=== PATIENT | female | born 1980 | race Caucasian/White ===

== ENCOUNTER 2021-01-10 11:10 | Emergency (ER) | payer MEDICAID, OTHER ==
[~2021-01-10] VITALS: Ht 152.4 cm; Wt 99.1 kg
[2021-01-10] MEDS ORDERED: PHENAZOPYRIDINE 100 MG TAB PO ONE (13:25)
[2021-01-10] MEDS ORDERED: ACETAMINOPHEN 500 MG TAB PO ONE (13:25)
[2021-01-10 13:51] LABS: BASO # 0.1 10^3/uL (0.0-0.2); BASO % 0.4 % (0.0-1.0); EOS # 0.1 10^3/uL (0.0-0.5); EOS % 0.8 % (0.0-3.0); HEMATOCRIT 40.6 % (36.0-47.0); HEMOGLOBIN 13.7 g/dl (12.0-15.5); LYMPH # 3.1 10^3/uL (1.5-5.0); LYMPH % 25.8 % (24.0-44.0); MEAN CORPUSCULAR HEMOGLOBIN 28.8 pg (27.0-33.0); MEAN CORPUSCULAR HGB CONC 33.7 g/dl (32.0-36.5); MEAN CORPUSCULAR VOLUME 85.5 fl (80.0-96.0); MONO # 0.5 10^3/uL (0.0-0.8); MONO % 3.8 % (2.0-8.0); NEUTROPHILS # 8.2 10^3/uL (1.5-8.5); NEUTROPHILS % 68.8 % (36.0-66.0); PLATELET COUNT, AUTOMATED 420 10^3/uL (150-450); RED BLOOD COUNT 4.75 10^6/uL (4.00-5.40); WHITE BLOOD COUNT 11.9 10^3/uL (4.0-10.0)
--- NOTE | 2021-01-10 14:13 | REP ---
INDICATION: uti, R CVAT, r/o stone vs pyelo. COMPARISON: None. TECHNIQUE: Real-time sonographic evaluation of the kidneys with Doppler FINDINGS: Multiple ultrasonographic images of the right kidney show the right kidney to measure 11 x 5.8 x 4.7 cm. The renal cortical echotexture is unremarkable. There is a round hypoechoic structure seen arising from the lower pole of the right kidney which measures 2.9 x 2.5 x 2.3 cm and exhibiting slight posterior wall enhancement without definite increased through transmission.. There is good corticomedullary differentiation. There is no hydronephrosis. There are no perinephric fluid collections. Multiple ultrasonographic images of the left kidney show the left kidney to measure 10.1 x 6 x 5.3 cm. The renal cortical echotexture is unremarkable. There are no masses. There is good corticomedullary differentiation. There is no hydronephrosis. There are no perinephric fluid collections. IMPRESSION: Probable right renal cyst as described above, however, since are no priors comparison I would recommend pre and postcontrast enhanced renal CT for full evaluation. <Electronically signed by Parker Su > 01/10/21 [id number]
--- NOTE | 2021-01-10 14:25 | REP ---
INDICATION: UTI, low back pain, R CVAT. COMPARISON: None. TECHNIQUE: Two AP views abdomen and pelvis. FINDINGS: There is no evidence of bowel dilatation, with no evidence of bowel obstruction. A 2 mm calcification is seen in the left pelvis. The visualized osseous structures are unremarkable. IMPRESSION: There is a 2 mm calcific density in the left pelvis. Distal ureteral calculus cannot be completely excluded. <Electronically signed by Fidencio Barahona > 01/10/21 0900
[2021-01-10] MEDS ORDERED: PHEN-372 PO (14:58)
[2021-01-10] MEDS ORDERED: CIPR500T39 PO (14:58)
[2021-01-10 15:22] VITALS: BP 134/81
--- NOTE | 2021-01-11 16:38 | ED PDOC ---
Post-Departure Follow-Up dr dela cruz faxed formal report of renal us for fu Alyx Archer MD Jan 11, 2021 16:38
== END 2021-01-10 15:24 | disposition home or self-care (01) ==
LOC: M ED 11:10
DX: N28.1 Cyst of kidney, acquired (principal); N39.0 Urinary tract infection, site not specified; Z91.030 Bee allergy status; Z91.040 Latex allergy status; F17.210 Nicotine dependence, cigarettes, uncomplicated

== ENCOUNTER → 2021-01-19 | Outpatient (REF) | payer MEDICAID ==
[~2021-01-19] MED LIST: CIPR500T39 PO; PHEN-372 PO
== END ==
LOC: M SFHCWAGY 13:23
PROVIDERS: ATTEND Advanced Practice Midwife
DX: Z12.4 Encounter for screening for malignant neoplasm of cervix (principal)

== ENCOUNTER → 2021-01-23 | Outpatient (CLI) | payer MEDICAID ==
[2021-01-23 15:34] LABS: APPEARANCE, URINE CLEAR (CLEAR); BACTERIA, URINE AUTO NEGATIVE (NEGATIVE); BILIRUBIN, URINE AUTO NEGATIVE (NEGATIVE); BLOOD, URINE BLOOD NEGATIVE (NEGATIVE); COLOR, URINE YELLOW (YELLOW); GLUCOSE, URINE (UA) AUTO NEGATIVE (NEGATIVE); KETONE, URINE AUTO NEGATIVE (NEGATIVE); LEUKOCYTE ESTERASE, URINE AUTO NEGATIVE (NEGATIVE); NITRITE, URINE AUTO NEGATIVE (NEGATIVE); PROTEIN, URINE AUTO NEGATIVE (NEGATIVE); RBC, URINE AUTO 1 /HPF (0-3); SPECIFIC GRAVITY URINE AUTO 1.018 (1.002-1.035); SQUAMOUS EPITHELIAL CELL UR AU 2 /HPF (0-6); UROBILINOGEN, URINE AUTO 0.2 mg/dL (0.0-2.0); WBC, URINE AUTO 3 /HPF (0-3)
== END ==
LOC: M LAB 15:02
PROVIDERS: ATTEND Nurse Practitioner Women's Health
DX: R31.0 Gross hematuria (principal)

== ENCOUNTER → 2021-01-25 | Outpatient (CLI) | payer MEDICAID, OTHER ==
[~2021-01-25] MED LIST changes: +ISOVUE-370 76% 100ML VIAL As Ordered ONE
--- NOTE | 2021-01-26 15:33 | REP ---
INDICATION: HEMATURIA. COMPARISON: None. TECHNIQUE: Imaging protocol: Computed tomography of the abdomen and pelvis with oral and without and with IV contrast. Contiguous 3 mm thick axial projection images were obtained through the abdomen and pelvis. 2D sagittal and coronal reconstructions were performed. Radiation optimization: All CT scans at this facility use at least one of these dose optimization techniques: automated exposure control; mA and/or kV adjustment per patient size (includes targeted exams where dose is matched to clinical indication); or iterative reconstruction. Contrast material: ISOVUE 370; Contrast volume: 100 ml; Contrast route: INTRAVENOUS (IV). FINDINGS: Heart and lung bases: The lung bases are clear. There are no pleural effusions. The heart size is normal. There is no pericardial effusion. Liver: There is moderate fatty liver infiltration. Gallbladder: Partially evacuated. Spleen: Normal. Pancreas: Normal. Adrenal glands: Normal. Kidneys/bladder: There is a 2 mm stone in an upper pole calyx of the left kidney. There is a 2 mm stone in a lower pole calyx of the right kidney. There is no ureterolithiasis or hydronephrosis. There is a 2.6 cm in diameter exophytic cyst from the interpolar cortex of the right kidney. There is a 2 mm cyst in the lower pole calyx of the left kidney. The urinary bladder is unremarkable. Pelvic structures: The anteverted uterus is unremarkable. The right ovary is enlarged, measuring 7.9 by 5.3 by 4.9 cm, and contains multiple, unilocular, cysts. The left lobe ovary is enlarged, measuring 7.7 x 6.5 x 3.9 cm, and contains multiple unilocular cysts. There is no free fluid in the pelvis. There is no pelvic or inguinal lymphadenopathy. GI tract: There is scattered colonic diverticula without evidence of acute inflammation. There is a normal appendix demonstrated. Abdominal wall and mesentery: There are no abdominal wall defects. There is no mesenteric or retroperitoneal lymphadenopathy. Abdominal aorta and vascular structures: The abdominal aorta, inferior vena cava, and portal venous system are normal. Bony structures: The lumbosacral spine is unremarkable. 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 The hips are unremarkable. IMPRESSION: 1. Bilateral nephrolithiasis without obstruction. 2. Fatty liver infiltration. 3. The ovaries are enlarged and contain multiple unilocular cysts. 4. Colonic diverticulosis without diverticulitis. 5. Other findings as noted. <Electronically signed by Pankaj Conn > 01/26/21 [id number]
== END ==
LOC: M RAD 15:53
PROVIDERS: ATTEND Nurse Practitioner Women's Health
DX: N20.1 Calculus of ureter (principal); R31.0 Gross hematuria; K76.0 Fatty (change of) liver, not elsewhere classified; K57.30 Diverticulosis of large intestine without perforation or abscess without bleeding
CPT/HCPCS: 74178; Q9967

== ENCOUNTER → 2021-02-02 | Outpatient (CLI) | payer MEDICAID ==
[~2021-02-02] MED LIST changes: -ISOVUE-370 76% 100ML VIAL As Ordered ONE
== END ==
LOC: M WHC 09:25
PROVIDERS: ATTEND Advanced Practice Midwife
DX: N92.0 Excessive and frequent menstruation with regular cycle (principal); Z53.9 Procedure and treatment not carried out, unspecified reason

== ENCOUNTER → 2021-02-03 | Outpatient (CLI) | payer MEDICAID ==
--- NOTE | 2021-02-03 19:17 | REP ---
INDICATION: MENORRAGHIA. COMPARISON: CT 01/25/2021 TECHNIQUE: Transabdominal and endovaginal probe ultrasound utilized. FINDINGS: Bladder is full at 13.7 x 6.2 x 9.2 cm. Uterus is anteverted measuring 8.9 x 3.6 x 4.1 cm. The central endometrial stripe has a thickness of 11.4 mm on the Ev probe that is homogeneous. The left of midline is a 3.1 x 3 x 3.1 cm fibroid. This is anterior and in the body of the uterus. There is nabothian cyst in the cervix. Right ovary is 5.6 x 3 x 4 cm the largest cyst 4.8 x 4.3 x 3.9 cm in that ovary. Left ovary is 3.5 x 2.3 x 2.2 cm in is a 2.5 x 3 x 1.9 cm cyst. Doppler tracing the left shows resistive index 0.78 we were unable to obtain adequate Doppler tracing of the right ovary. To the right of midline is a tubular structure 5.6 x 2.2 cm and a somewhat smaller tubular fluid-filled structure on the left 4.9 x 4.3 cm. IMPRESSION: 1. Anteverted uterus which has an anterior left uterine body fibroid which is subserosal and measures 3.1 x 3.1 x 3 cm. Endometrial stripe thickness for 11.4 mm with no fluid in the endometrial cavity. Nabothian cysts seen. 2. Right ovary has a 4.8 x 4.3 x 3.9 cm cyst and the left has a 2.5 x 3 x 1.9 cm cyst. Doppler tracing on the left shows resistive index 0.78 and the Doppler tracing could not be obtained on the right. 3. Bilateral fluid-filled tubular structures in the adnexal regions on the right 5.6 x 2.2 cm on the left 4.9 x 4.3 cm. Salpingitis or other tubular abnormality suspected. No pelvic free fluid. <Electronically signed by Jose Manuel Levine > 02/03/211912
== END ==
LOC: M WHC 13:59
PROVIDERS: ATTEND Advanced Practice Midwife
DX: N92.0 Excessive and frequent menstruation with regular cycle (principal); N83.201 Unspecified ovarian cyst, right side; N83.202 Unspecified ovarian cyst, left side; R93.89 Abnormal findings on diagnostic imaging of other specified body structures; D25.2 Subserosal leiomyoma of uterus

== ENCOUNTER → 2021-03-01 | Outpatient (REF) | payer MEDICAID, OTHER | LOC: M SFHCWAGY 15:06 | PROVIDERS: ATTEND Obstetrics & Gynecology | DX: N93.9 Abnormal uterine and vaginal bleeding, unspecified (principal); N85.01 Benign endometrial hyperplasia ==

== ENCOUNTER → 2021-04-12 | Outpatient (CLI) | payer OTHER | LOC: M RAD 09:59 | PROVIDERS: ATTEND Nurse Practitioner Family | DX: R06.00 Dyspnea, unspecified (principal) ==

== ENCOUNTER → 2021-04-19 | Outpatient (CLI) | payer OTHER | LOC: M CARPUL 07:46 | PROVIDERS: ATTEND Nurse Practitioner Family | DX: R06.00 Dyspnea, unspecified (principal) ==

== ENCOUNTER 2021-10-05 12:21 | Emergency (ER) | payer OTHER ==
[~2021-10-05] VITALS: Ht 152.4 cm; Wt 101.3 kg
[2021-10-05] MEDS ORDERED: METF-838 (13:32)
[2021-10-05] MEDS ORDERED: NORE0.353 (13:32)
[2021-10-05] MEDS ORDERED: MECL-86 (13:32)
[2021-10-05] MEDS ORDERED: EPIN0.3I11 (13:32)
[2021-10-05] MEDS ORDERED: AMIT25TA17 (13:32)
[2021-10-05] MEDS ORDERED: LIDOCAINE 4% CREAM 5GM (LMX4) TOP ONE (14:55)
[2021-10-05] MEDS ORDERED: KETOROLAC 60MG 2ML VIAL IM ONE (14:55)
[2021-10-05] MEDS ORDERED: LIDOCAINE 5% (LIDODERM) PATCH TD ONE (15:00)
[2021-10-05] MEDS ORDERED: MECLIZINE 25 MG TABLET PO ONE (15:00)
[2021-10-05 16:33] VITALS: BP 132/82
[2021-10-05] MEDS ORDERED: **NOTE PATIENT COMMENT** MISC XX SCH (21:00)
== END 2021-10-05 16:34 | disposition home or self-care (01) ==
LOC: M ED 12:21
DX: Z04.1 Encounter for examination and observation following transport accident (principal); M25.571 Pain in right ankle and joints of right foot; M25.572 Pain in left ankle and joints of left foot; M25.561 Pain in right knee; M25.562 Pain in left knee; M54.9 Dorsalgia, unspecified; J45.909 Unspecified asthma, uncomplicated; Z91.030 Bee allergy status; Z91.040 Latex allergy status; Z79.899 Other long term (current) drug therapy; Z79.84 Long term (current) use of oral hypoglycemic drugs; F17.200 Nicotine dependence, unspecified, uncomplicated
CPT/HCPCS: 72110; 73560; 73610; 96372; 99284; J1885

== ENCOUNTER → 2022-10-26 | Outpatient (REF) | payer OTHER ==
[~2022-10-26] MED LIST changes: +AMIT25TA17; +EPIN0.3I11 IM; +FAMO1TAB11 PO; +IBUP80TA PO; +MECL-86 PO; +METF-838; +NORE0.353
[2022-10-26 17:05] LABS: BASO % 0.5 % (0.0-1.0); EOS # 0.1 10^3/uL (0.0-0.5); EOS % 0.8 % (0.0-3.0); HEMATOCRIT 38.1 % (36.0-47.0); HEMOGLOBIN 12.6 g/dl (12.0-15.5); LYMPH # 2.6 10^3/uL (1.5-5.0); LYMPH % 35.2 % (24.0-44.0); MEAN CORPUSCULAR HEMOGLOBIN 28.4 pg (27.0-33.0); MEAN CORPUSCULAR HGB CONC 33.1 g/dl (32.0-36.5); MEAN CORPUSCULAR VOLUME 85.8 fl (80.0-96.0); MONO # 0.4 10^3/uL (0.0-0.8); MONO % 5.3 % (2.0-8.0); NEUTROPHILS # 4.3 10^3/uL (1.5-8.5); NEUTROPHILS % 57.9 % (36.0-66.0); PLATELET COUNT, AUTOMATED 356 10^3/uL (150-450); RED BLOOD COUNT 4.44 10^6/uL (4.00-5.40); WHITE BLOOD COUNT 7.4 10^3/uL (4.0-10.0)
[2022-10-26 17:28] LABS: HEMOGLOBIN A1c 8.7 % (4.0-6.0)
[2022-10-26 17:43] LABS: ALBUMIN 4.1 G/DL (3.2-5.2); ALKALINE PHOSPHATASE 77 U/L (46-116); ALT/SGPT 18 U/L (7.0-40); AST/SGOT < 8 U/L (<34); BILIRUBIN,TOTAL 0.5 MG/DL (0.3-1.2); BLOOD UREA NITROGEN 11 MG/DL (9-23); CALCIUM LEVEL 9.2 MG/DL (8.5-10.1); CARBON DIOXIDE LEVEL 25 MMOL/L (20-31); CHLORIDE LEVEL 101 MMOL/L (98-107); CHOLESTEROL LEVEL 257 MG/DL (<200); CHOLESTEROL RISK RATIO 5.57 (<5); CREATININE FOR GFR 0.52 MG/DL (0.55-1.30); GLOMERULAR FILTRATION RATE > 60.0 (>58); GLUCOSE, FASTING 170 MG/DL (60-100); HDL CHOLESTEROL 46.1 MG/DL (>40); LDL CHOLESTEROL 168.1 MG/DL (<100); NON-HDL-C 210.9 MG/DL; POTASSIUM SERUM 4.1 MMOL/L (3.5-5.1); SODIUM LEVEL 138 MMOL/L (136-145); TOTAL 25(OH) VITAMIN D 8.9 NG/ML (20.0-100.0); TOTAL PROTEIN 7.3 G/DL (5.7-8.2); TRIGLYCERIDES LEVEL 214 MG/DL (<150)
== END ==
LOC: M LAB REF 16:24
PROVIDERS: ATTEND Nurse Practitioner Family
DX: Z13.228 Encounter for screening for other metabolic disorders (principal)

== ENCOUNTER → 2022-11-02 | Outpatient (CLI) | payer OTHER ==
[~2022-11-02] MED LIST changes: -AMIT25TA17; +AMIT25TA19
== END ==
LOC: M WHC 14:41
PROVIDERS: ATTEND Obstetrics & Gynecology
DX: Z12.31 Encounter for screening mammogram for malignant neoplasm of breast (principal)

== ENCOUNTER → 2022-11-20 | Outpatient (CLI) | payer OTHER | LOC: M WHC 07:51 | PROVIDERS: ATTEND Obstetrics & Gynecology | DX: Z12.31 Encounter for screening mammogram for malignant neoplasm of breast (principal) ==

== ENCOUNTER → 2022-11-28 | Outpatient (CLI) | payer MEDICAID, OTHER | LOC: M WHC 09:32 | PROVIDERS: ATTEND Surgery | DX: R92.8 Other abnormal and inconclusive findings on diagnostic imaging of breast (principal) ==

== ENCOUNTER → 2022-11-28 | Outpatient (REF) | payer OTHER | LOC: M SFHCWAGY 13:02 | PROVIDERS: ATTEND Surgery | DX: N60.21 Fibroadenosis of right breast (principal) ==

== ENCOUNTER → 2023-06-10 | Outpatient (REF) | payer OTHER, MEDICAID ==
[2023-06-10 13:09] LABS: IRON (FE) 113 UG/DL (50-170); PERCENT SATURATION 35.8 % (13.2-45.0); TOTAL IRON BINDING CAPACITY 316 UG/DL (250-425)
[2023-06-10 13:10] LABS: ALBUMIN 3.8 G/DL (3.2-5.2); ALKALINE PHOSPHATASE 71 U/L (46-116); ALT/SGPT 22 U/L (7.0-40); AST/SGOT 12 U/L (<34); BILIRUBIN,TOTAL 0.4 MG/DL (0.3-1.2); BLOOD UREA NITROGEN 9 MG/DL (9-23); CALCIUM LEVEL 8.9 MG/DL (8.5-10.1); CARBON DIOXIDE LEVEL 26 MMOL/L (20-31); CHLORIDE LEVEL 103 MMOL/L (98-107); CHOLESTEROL LEVEL 201 MG/DL (<200); CHOLESTEROL RISK RATIO 4.51 (<5); CREATININE FOR GFR 0.53 MG/DL (0.55-1.30); FERRITIN 29.7 NG/ML (7.3-270.7); GLOMERULAR FILTRATION RATE > 60.0 (>58); GLUCOSE, FASTING 193 MG/DL (60-100); HDL CHOLESTEROL 44.5 MG/DL (>40); LDL CHOLESTEROL 103.3 MG/DL (<100); NON-HDL-C 156.5 MG/DL; POTASSIUM SERUM 4.3 MMOL/L (3.5-5.1); SODIUM LEVEL 136 MMOL/L (136-145); TOTAL PROTEIN 7.1 G/DL (5.7-8.2); TRIGLYCERIDES LEVEL 266 MG/DL (<150)
[2023-06-10 13:11] LABS: VITAMIN B12 LEVEL 249 PG/ML (211-911)
[2023-06-10 13:37] LABS: HEMOGLOBIN A1c 8.1 % (4.0-6.0)
== END ==
LOC: M LAB REF 10:44
PROVIDERS: ATTEND Nurse Practitioner Family
DX: E78.5 Hyperlipidemia, unspecified (principal); R58 Hemorrhage, not elsewhere classified; E11.9 Type 2 diabetes mellitus without complications

== ENCOUNTER → 2023-08-01 | Outpatient (CLI) | payer OTHER | LOC: M RAD 12:54 | PROVIDERS: ATTEND Nurse Practitioner Family | DX: M79.629 Pain in unspecified upper arm (principal) ==

== ENCOUNTER → 2023-09-03 | Outpatient (CLI) | payer OTHER | LOC: M WHC 11:51 | PROVIDERS: ATTEND Obstetrics & Gynecology | DX: N63.15 Unspecified lump in the right breast, overlapping quadrants (principal) ==

== ENCOUNTER → 2023-09-11 | Outpatient (REF) | payer OTHER ==
[2023-09-11 17:16] LABS: CREATININE, URINE 116.6 MG/DL
[2023-09-11 17:17] LABS: MAU/CREAT RATIO 9.4 MCG/MG (0.0-30.0)
[2023-09-11 17:57] LABS: ALBUMIN 3.7 G/DL (3.2-5.2); ALKALINE PHOSPHATASE 80 U/L (46-116); ALT/SGPT 30 U/L (7.0-40); AST/SGOT 10 U/L (<34); BILIRUBIN,TOTAL 0.3 MG/DL (0.3-1.2); BLOOD UREA NITROGEN 13 MG/DL (9-23); CALCIUM LEVEL 9.3 MG/DL (8.5-10.1); CARBON DIOXIDE LEVEL 27 MMOL/L (20-31); CHLORIDE LEVEL 104 MMOL/L (98-107); CHOLESTEROL LEVEL 180 MG/DL (<200); CREATININE FOR GFR 0.49 MG/DL (0.55-1.30); GLOMERULAR FILTRATION RATE > 60.0 (>58); GLUCOSE, FASTING 123 MG/DL (60-100); LDL CHOLESTEROL 64.2 MG/DL (<100); POTASSIUM SERUM 4.4 MMOL/L (3.5-5.1); SODIUM LEVEL 138 MMOL/L (136-145); TOTAL PROTEIN 7.1 G/DL (5.7-8.2); TRIGLYCERIDES LEVEL 379 MG/DL (<150)
== END ==
LOC: M LAB REF 16:16
PROVIDERS: ATTEND Nurse Practitioner Family
DX: E11.9 Type 2 diabetes mellitus without complications (principal); E78.5 Hyperlipidemia, unspecified

== ENCOUNTER → 2024-01-16 | Outpatient (REF) | payer OTHER ==
[2024-01-16 13:58] LABS: BASO % 0.6 % (0.0-1.0); EOS # 0.1 10^3/uL (0.0-0.5); EOS % 1.6 % (0.0-3.0); HEMATOCRIT 36.3 % (36.0-47.0); LYMPH # 2.3 10^3/uL (1.5-5.0); LYMPH % 33.7 % (24.0-44.0); MEAN CORPUSCULAR HEMOGLOBIN 29.1 pg (27.0-33.0); MEAN CORPUSCULAR HGB CONC 33.1 g/dl (32.0-36.5); MEAN CORPUSCULAR VOLUME 87.9 fl (80.0-96.0); MONO # 0.4 10^3/uL (0.0-0.8); MONO % 6.3 % (2.0-8.0); NEUTROPHILS # 3.9 10^3/uL (1.5-8.5); NEUTROPHILS % 57.7 % (36.0-66.0); PLATELET COUNT, AUTOMATED 365 10^3/uL (150-450); RED BLOOD COUNT 4.13 10^6/uL (4.00-5.40); WHITE BLOOD COUNT 6.8 10^3/uL (4.0-10.0)
[2024-01-16 14:01] LABS: ALBUMIN 3.8 G/DL (3.2-5.2); ALKALINE PHOSPHATASE 81 U/L (46-116); ALT/SGPT 26 U/L (7.0-40); AST/SGOT 13 U/L (<34); BILIRUBIN,TOTAL 0.3 MG/DL (0.3-1.2); BLOOD UREA NITROGEN 12 MG/DL (9-23); CALCIUM LEVEL 9.7 MG/DL (8.5-10.1); CARBON DIOXIDE LEVEL 26 MMOL/L (20-31); CHLORIDE LEVEL 106 MMOL/L (98-107); CHOLESTEROL LEVEL 239 MG/DL (<200); CHOLESTEROL RISK RATIO 5.13 (<5); CREATININE FOR GFR 0.58 MG/DL (0.55-1.30); GLOMERULAR FILTRATION RATE > 60.0 (>58); GLUCOSE, FASTING 166 MG/DL (60-100); HDL CHOLESTEROL 46.5 MG/DL (>40); MAGNESIUM LEVEL 1.7 MG/DL (1.8-2.4); NON-HDL-C 192.5 MG/DL; POTASSIUM SERUM 4.3 MMOL/L (3.5-5.1); SODIUM LEVEL 138 MMOL/L (136-145); THYROID STIMULATING HORMONE 3.781 uIU/ML (0.55-4.78); TOTAL 25(OH) VITAMIN D 39.6 NG/ML (20.0-100.0); TOTAL PROTEIN 7.4 G/DL (5.7-8.2); TRIGLYCERIDES LEVEL 436 MG/DL (<150)
[2024-01-16 14:20] LABS: HEMOGLOBIN A1c 6.9 % (4.0-6.0)
== END ==
LOC: M LAB REF 12:34
PROVIDERS: ATTEND Nurse Practitioner Family
DX: E11.9 Type 2 diabetes mellitus without complications (principal); E55.9 Vitamin D deficiency, unspecified; E66.01 Morbid (severe) obesity due to excess calories

== ENCOUNTER → 2024-05-07 | Outpatient (REF) | payer OTHER ==
[2024-05-07 14:27] LABS: ALBUMIN 3.6 G/DL (3.2-5.2); ALKALINE PHOSPHATASE 66 U/L (35-104); ALT/SGPT 20 U/L (7.0-40); AST/SGOT 12 U/L (<34); BILIRUBIN,TOTAL 0.3 MG/DL (0.3-1.2); BLOOD UREA NITROGEN 11 MG/DL (9-23); CARBON DIOXIDE LEVEL 26 MMOL/L (20-31); CHLORIDE LEVEL 104 MMOL/L (98-107); CHOLESTEROL LEVEL 237 MG/DL (<200); CREATININE FOR GFR 0.58 MG/DL (0.55-1.30); GLOMERULAR FILTRATION RATE > 60.0 (>58); GLUCOSE, FASTING 124 MG/DL (60-100); HDL CHOLESTEROL 47.4 MG/DL (>40); LDL CHOLESTEROL 140.4 MG/DL (<100); NON-HDL-C 189.6 MG/DL; POTASSIUM SERUM 4.3 MMOL/L (3.5-5.1); SODIUM LEVEL 139 MMOL/L (136-145); TOTAL PROTEIN 7.1 G/DL (5.7-8.2); TRIGLYCERIDES LEVEL 246 MG/DL (<150)
[2024-05-07 14:31] LABS: HEMOGLOBIN A1c 6.6 % (4.0-6.0)
== END ==
LOC: M LAB REF 13:05
PROVIDERS: ATTEND Nurse Practitioner Family
DX: E11.9 Type 2 diabetes mellitus without complications (principal); E78.5 Hyperlipidemia, unspecified

== ENCOUNTER → 2024-05-14 | Outpatient (REF) | payer OTHER | LOC: M LAB REF 16:12 | PROVIDERS: ATTEND Nurse Practitioner Family | DX: R39.9 Unspecified symptoms and signs involving the genitourinary system (principal) ==